=== PATIENT | female | born 1990 | race Caucasian/White ===

== ENCOUNTER 2017-01-30 15:38 | Emergency (ER) | payer OTHER | END 2017-01-30 16:24 | disposition home or self-care (01) | LOC: SED 15:38 | DX: H65.02 Acute serous otitis media, left ear (principal); J02.9 Acute pharyngitis, unspecified; Z96.22 Myringotomy tube(s) status; Z87.891 Personal history of nicotine dependence | CPT/HCPCS: 99282 ==